=== PATIENT | male | born 1955 | race Two or more races ===

== ENCOUNTER 2016-10-15 19:20 | Emergency (ER) | payer SELFPAY ==
[~2016-10-15] VITALS: Ht 172.7 cm; Wt 84.4 kg
[2016-10-15 23:17] LABS: Partial Thromboplastin Time 21.2 sec (22.64-33.71); Prothrombin Time 10.3 sec (9.37-12.3)
[2016-10-15 23:25] LABS: Basophils # (auto) 0.2 uL; Basophils % (auto) 2.3 % (0.0-2.0); Eosinophils # (auto) 0.1 uL; Hematocrit 38.9 % (41.0-53.0); Hemoglobin 13.4 g/dL (13.5-17.5); Lymphocytes # (auto) 1.9 uL; Lymphocytes % (auto) 25.6 % (10.0-50.0); Mean Corpuscular Hemoglobin 30.7 pg (28.0-32.0); Mean Corpuscular Hgb Conc. 34.3 g/dL (32.0-36.0); Mean Corpuscular Volume 89.3 fL (80.0-100.0); Mean Platelet Volume 8.2 fL (7.4-10.4); Monocytes # (auto) 0.7 uL; Monocytes % (auto) 9.8 % (0.0-12.0); Neutrophils # (auto) 4.4 uL; Neutrophils % (auto) 61.3 % (37.0-80.0); Platelet Count (auto) 254 10^3/uL (140-450); White Blood Cell 7.2 10^3/uL (4.4-10.8)
[2016-10-15 23:29] LABS: Albumin 3.6 g/dL (3.4-5.0); Alkaline Phosphatase 29 U/L (45-117); Anion Gap 9 (5-15); Aspartate Aminotransferase 22 U/L (15-37); Bilirubin, Total 0.3 mg/dL (0.2-1.0); Blood Urea Nitrogen 22 mg/dL (7-18); Carbon Dioxide 25 mmol/L (21-32); Chloride 110 mmol/L (98-107); GFR African American 97 mL/min; GFR Non-African American 80 mL/min; Glucose 116 mg/dL (74-106); Sodium 144 mmol/L (136-145); Total Protein 7.4 g/dL (6.4-8.2)
[2016-10-16 00:05] LABS: B-Type Natriuretic Peptide 14.98 pg/mL (0-100)
[2016-10-16 00:55] LABS: Temperature: 22.3 C (20.0-25.0)
[2016-10-16 01:21] VITALS: BP 128/78
== END 2016-10-16 01:41 | disposition home or self-care (01) ==
LOC: ER 19:26
DX: I10 Essential (primary) hypertension (principal); R10.9 Unspecified abdominal pain
CPT/HCPCS: 36415; 71010; 80053; 83880; 84484; 85025; 85610; 85730; 93005; 99285; J7030